=== PATIENT | female | born 1950 | race Caucasian/White ===

== ENCOUNTER 2016-10-23 22:21 | Emergency (ER) | payer OTHER ==
--- NOTE | 2016-10-23 23:14 | RADIOLOGY REPORT ---
HISTORY: Injury COMPARISON: None. FINDINGS: 4 views of the wrist obtained. There is an impacted fracture of the distal radial metaphysis with sl ight dorsal angulation. There is no lytic or sclerotic lesion. There is widening of the scapholunat e interval measuring up to 5 mm. No other fracture or dislocation is seen. There is no destructive o sseous lesion. Osseous mineralization is normal. IMPRESSION: 1. Impacted fracture of distal radial metaphysis with slight dorsal angulation. 2. Widened scapholunate interval indicating ligamentous disruption. Surgical consultation is recommen ded. .. Final Electronic Signature: This report was electronically signed by Buddy Quintanilla MD on 10/23/2016 11 :12 PM. [email or web address] /
--- NOTE | 2016-10-23 23:56 | ER NURSING DOCUMENTATION ---
Nurse's Notes [facility] Name:Mariella Villagran Age:66 yrs Sex:Female :1950 Arrival Date:10/23/2016 Time:22:21 Bed6 Private MD: Diagnosis:Distal Radius Fracture Presentation: 10/23 22:33 Presenting complaint: Patient states: Pt was dancing at a wedding and fell back onto [facility] her wrist. Pt is moving wrist in room. Pt removes wedding ring. Transition of care: Home. Care prior to arrival: None. 22:33 Method Of Arrival: Walk In [facility] 22:33 Acuity: YANCY 4 [facility] Triage Assessment: 22:37 General: Appears in no apparent distress, Behavior is agitated, anxious. Pain: 2 Complains of pain in left wrist. Musculoskeletal: Swelling. Injury Description: fall back onto wrist. Historical: - Allergies: No known drug Allergies; - Home Meds: 1. thyroid medication - PMHx: HYPOTHYROIDISM; - PSHx: None; - Tetanus: < 10 years. - Ebola Screening: : Patient negative for fever greater than or equal to 101.5 degrees Fahrenheit, and additional compatible Ebola Virus Disease symptoms. Patient denies exposure to infectious person. Patient denies travel to an Ebola-affected area in the 21 days before illness onset. No symptoms or risks identified at this time. . - Immunization history: Flu Vaccine < 1 year. - Social history: Smoking status: Patient states was never smoker of tobacco. Patient uses alcohol occasionally. Screenin:40 Infectious Disease Risk None. Abuse screen: Denies injuries from another. Nutritional [facility] screening: No deficits noted. Assessment: 22:40 See Triage Assessment done by same RN. 2 Vital Signs: 22:38 BP 129 / 61; Pulse 70; Resp 16; Temp 98.9; Pulse Ox 90% on R/A; Weight 77.11 kg; Height mk2 5 ft. 2 in. (157.48 cm); Pain 4/10; 23:54 BP 132 / 67; Pulse 78; Resp 14; Temp 98.3; Pulse Ox 90% on R/A; Pain 4/10; mk4 22:38 Body Mass Index 31.09 (77.11 kg, 157.48 cm) [facility] ED Course: 22:23 Patient arrived in ED. jt 22:25 Valdemar Greenfield MD is Attending Physician. vt 22:33 Pema Odom, RN is Primary Nurse. 2 22:36 Triage completed. 2 22:40 Arm band placed on Bed in low position Call Light in Reach Gowned HOB Elevated Side mk2 rails up x1. 22:45 Port Xray Completed. mr Administered Medications: No medications were administered Outcome: 23:19 Discharge ordered by . vt 23:54 Discharged to home ambulatory. [email or web address] 23:54 Condition: good 23:54 Discharge Assessment: Patient awake, alert and oriented x 3. No cognitive and/or functional deficits noted. Patient verbalized understanding of disposition instructions. 23:54 Discharge instructions given to patient, significant other, Instructed on discharge instructions, follow up and referral plans. medication usage, no drinking with medication, Demonstrated understanding of instructions, medications, Prescriptions given X 1. 23:56 Patient left the ED. [email or web address] 07 17:12 Discharge F/U Call: Spoke with: patient. Are you having any pain? yes. Pain level is lb 4 / 10 How are you managing your pain? Have you filled your prescriptions? yes. Did your discharge instructions answer all of your questions? yes Have you made a f/u appointment? yes Overall Care on a scale of 1-10 with 10 being the best care, you rate our care as: the rating of 10. Signatures: Valdemar Greenfield MD MD vt Pema Odom, RN RN 2 Kyra Mendiola 4 Catie Ni Lynda lb Rivera, Michael mr
--- NOTE | 2016-10-23 23:56 | ER PHYSICIAN DOCUMENTATION ---
Physician Documentation [facility] Name:Mariella Villagran Age:66 yrs Sex:Female :1950 Arrival Date:10/23/2016 Time:22:21 Bed6 Private MD: Valdemar Sanches Disposition: 10/23/16 23:19 Discharged to Home/Self Care. Impression: Distal Radius Fracture. - Condition is Fair. - Discharge Instructions: FRACTURE, Upper Extremity. - Prescriptions for Hydrocodone- Acetaminophen 5-325 mg Oral Tablet - take 1 tablet by ORAL route every 6 hours As needed; 20 tablet. - Medical Reconciliation form form. - Follow up: Private Physician; When: 4- 6 days; Reason: Continuance of care. - Problem is new. - Symptoms have improved. HPI: 10/23 23:20 This 66 yrs old Female presents to ER via Walk In with complaints of Wrist sc Injury - LEFT. 23:20 The patient or guardian reports injury. The complaints affect the left wrist diffusely. sc Context: The problem was sustained inside, resulted from a fall, on an outstretched hand. Onset: The symptom(s)/episode began/occurred just prior to arrival. Associated signs and symptoms: The patient has no apparent associated signs or symptoms. The patient has not experienced similar symptoms in the past. Historical: - Allergies: No known drug Allergies; - Home Meds: 1. thyroid medication - PMHx: HYPOTHYROIDISM; - PSHx: None; - Tetanus: < 10 years. - Ebola Screening: : Patient negative for fever greater than or equal to 101.5 degrees Fahrenheit, and additional compatible Ebola Virus Disease symptoms. Patient denies exposure to infectious person. Patient denies travel to an Ebola-affected area in the 21 days before illness onset. No symptoms or risks identified at this time. . - Immunization history: Flu Vaccine < 1 year. - Social history: Smoking status: Patient states was never smoker of tobacco. Patient uses alcohol occasionally. ROS: 23:21 Constitutional: Negative for fever, chills, and weight loss. sc Eyes: Negative for injury, pain, redness, and discharge. Neck: Negative for injury, pain, and swelling. Back: Negative for injury and pain. Skin: Negative for injury, rash, and discoloration. 23:21 Neuro: Negative for headache, weakness, numbness, tingling, and seizure. sc 23:21 MS/extremity: Positive for injury or acute deformity, pain, swelling. Exam: 23:21 Hand exam: Exam is positive for deformity, swelling, tenderness, ROM: limited active sc range of motion due to pain, limited passive range of motion due to pain, Circulation is intact in all extremities. sensation intact. Constitutional: This is a well developed, well nourished patient who is awake, alert, and in no acute distress. Head/Face: Normocephalic, atraumatic. Eyes: Pupils equal round and reactive to light, extra-ocular motions intact. Lids and lashes normal. Conjunctiva and sclera are non-icteric and not injected. Cornea within normal limits. Periorbital areas with no swelling, redness, or edema. Skin: Warm, dry with normal turgor. Normal color with no rashes, no lesions, and no evidence of cellulitis. 23:21 Neuro: Awake and alert, GCS 15, oriented to person, place, time, and situation. Cranial nerves II-XII grossly intact. Motor strength 5/5 in all extremities. Sensory grossly intact. Cerebellar exam normal. Normal gait. Vital Signs: 22:38 BP 129 / 61; Pulse 70; Resp 16; Temp 98.9; Pulse Ox 90% on R/A; Weight 77.11 kg; Height mk2 5 ft. 2 in. (157.48 cm); Pain 4/10; 23:54 BP 132 / 67; Pulse 78; Resp 14; Temp 98.3; Pulse Ox 90% on R/A; Pain 4/10; mk4 22:38 Body Mass Index 31.09 (77.11 kg, 157.48 cm) mk2 Procedures: 23:21 Splinting: Splint applied to left wrist using Orthoglass splint, applied by myself. sc Examined by me, post splint application: neurovascular intact, Patient tolerated well. MDM: 22:25 Patient medically screened. sc 23:22 Differential diagnosis: closed fracture, contusion. Data reviewed: vital signs, nurses sc notes, radiologic studies, and as a result, I will discharge patient. Counseling: I had a detailed discussion with the patient and/or guardian regarding: the historical points, exam findings, and any diagnostic results supporting the discharge/admit diagnosis, radiology results, the need for outpatient follow up, for a referral to a specialist. 10/23 23:16 Order name: WRIST; [place] [id number]; Complete Time: 23:23 EDMS 10/23 23:23 Interpretation: Abnormal. sc Dispensed Medications: No medications were administered Signatures: Valdemar Greenfield MD MD sc Kruger, Meg, RN RN mk2 Kyra Mendiola4
== END 2016-10-23 23:56 | disposition home or self-care (01) ==
LOC: ER 22:21
DX: S52.502A Unspecified fracture of the lower end of left radius, initial encounter for closed fracture (principal); W18.39XA Other fall on same level, initial encounter; Y93.41 Activity, dancing
CPT/HCPCS: 29125; 99283